=== PATIENT | female | born 1990 | race Caucasian/White ===

== ENCOUNTER 2025-10-08 16:25 | Emergency (ER) | payer OTHER ==
[~2025-10-08] VITALS: Ht 157.5 cm; Wt 57.0 kg
[2025-10-08 16:30] VITALS: O2SAT 99
[2025-10-08 18:25] LABS: BASOPHILS % 0.4 % (0.0-2.0); EOSINOPHILS % 0.0 % (0.0-5.0); HEMATOCRIT. 34.9 % (36.0-48.0); HEMOGLOBIN. 11.8 g/dL (12.0-16.0); LYMPHOCYTES % 24.0 % (20.0-50.0); MEAN PLATELET VOLUME 8.6 fl (7.4-10.4); MONOCYTES % 8.2 % (2.0-8.0); NEUTROPHILS % 67.4 % (40.0-76.0); PLATELET 186 x1000/uL (130-400); RED BLOOD CELL COUNT 3.84 mill/uL (4.2-5.4); RED CELL DISTRIBUTION WIDTH 11.8 % (11.6-14.6)
[2025-10-08 18:52] LABS: CREATININE 0.8 mg/dL (0.6-1.0); UREA NITROGEN BLOOD 7 mg/dL (9-23)
[2025-10-08] MEDS ORDERED: ACET-2708 MT (21:21)
[2025-10-08] MEDS ORDERED: AMOX1TAB16 MT (21:21)
[2025-10-08 21:28] VITALS: BP 116/61; PULSE 75; RESP 16; TEMP 36.9; O2SAT 100
[2025-10-08] MEDS ORDERED: IOHEXOL-300 100 ML BOTTLE ONE (23:16)
== END 2025-10-08 21:32 | disposition home or self-care (01) ==
LOC: ER 16:25
DX: K02.9 Dental caries, unspecified (principal); K04.7 Periapical abscess without sinus; R42 Dizziness and giddiness
CPT/HCPCS: 99285; 70487; 80048; 85025; 36415; Q9967